=== PATIENT | female | born 1980 | race Two or more races ===

== ENCOUNTER 2017-11-14 16:33 | Emergency (ER) | payer OTHER ==
[~2017-11-14] VITALS: Ht 167.6 cm; Wt 100.7 kg
[2017-11-14 16:38] VITALS: Ht 167.6 cm; Wt 100.7 kg
[2017-11-14 17:40] VITALS: BP 132/74
== END 2017-11-14 18:25 | disposition home or self-care (01) ==
LOC: ED 16:33
DX: M54.42 Lumbago with sciatica, left side (principal)